=== PATIENT | female | born 1975 | race Caucasian/White ===

== ENCOUNTER 2019-06-22 12:12 | Emergency (ER) | payer BC, OTHER ==
[2019-06-22 12:17] VITALS: TEMP 98
[2019-06-22] MEDS ORDERED: ACET/COD 300 MG/30 MG STARTER PACK 6 TAB BTL PO STA (12:32)
[2019-06-22] MEDS ORDERED: LIDOCAINE 1% INJ 10MG/ML (20 ML MDV) SQ ONE (12:39)
--- NOTE | 2019-06-22 12:40 | ED ---
Wound/Laceration HPI - General Chief Complaint: Wound/Laceration Stated Complaint: elbow lac Time Seen by Provider: 06/22/19 12:21 Source: patient, RN notes reviewed, old records reviewed Mode of arrival: ambulatory Limitations: no limitations - History of Present Illness Initial Comments: Patient is a 44-year-old female who presents emergency department today after a fall onto her left elbow. Patient reports that she tripped over her dog and landed on her elbow. She complains of a laceration that will need stitches. Patient states that she is right-handed. She denies any other injuries related to the fall. - Related Data Previous Rx's Medication Instructions Recorded HYDROcodone/APAP 5-325MG [[place] 1 tab PO Q6HR PRN #20 tab 12/05/15 5-325] Ibuprofen [Motrin] 600 mg PO Q6HR PRN #20 tab 12/05/15 Allergies Allergy/AdvReac Type Severity Reaction Status Date / Time No Known Allergies Allergy Verified 06/22/19 12:18 Review of Systems ROS Statement: Those systems with pertinent positive or pertinent negative responses have been documented in the HPI. ROS Other: All systems not noted in ROS Statement are negative. Past Medical History Additional Past Medical History / Comment(s): convulsions History of Any Multi-Drug Resistant Organisms: None Reported Past Surgical History: Section, Cholecystectomy Past Psychological History: Anxiety Smoking Status: Current every day smoker Past Alcohol Use History: Occasional Past Drug Use History: None Reported General Exam - General Exam Comments Initial Comments: 44-year-old female. Limitations: no limitations General appearance: alert, in no apparent distress Head exam: Present: atraumatic, normocephalic, normal inspection Eye exam: Present: normal appearance, PERRL, EOMI. Absent: scleral icterus, conjunctival injection, periorbital swelling ENT exam: Present: normal exam, mucous membranes moist Neck exam: Present: normal inspection. Absent: tenderness, meningismus, lymphadenopathy Respiratory exam: Present: normal lung sounds bilaterally. Absent: respiratory distress, wheezes, rales, rhonchi, stridor Cardiovascular Exam: Present: regular rate GI/Abdominal exam: Present: soft, normal bowel sounds. Absent: distended, tenderness, guarding, rebound, rigid Extremities exam: Present: normal inspection, full ROM, normal capillary refill. Absent: tenderness, pedal edema, joint swelling, calf tenderness Left Upper Arm exam: Present: normal inspection, full ROM Elbow exam: Present: full ROM, swelling (over elbow, 3 cm laceration). Absent: normal inspection, tenderness Forearm Wrist exam: Present: normal inspection, full ROM Hand Wrist exam: Present: normal inspection, full ROM Neuro motor exam: Present: wrist extension intact, thumb opposition intact, thumb IP flexion intact, thumb adduction intact, fingers 2-5 abduction intact Vascular: Present: normal capillary refill Back exam: Present: normal inspection Neurological exam: Present: alert, oriented X3, CN II-XII intact Psychiatric exam: Present: normal affect, normal mood Skin exam: Present: warm, dry, intact, normal color. Absent: rash Course Vital Signs 06/22/19 06/22/19 12:14 13:34 Temperature 98.0 F Pulse Rate 95 78 Respiratory 18 16 Rate Blood Pressure 143/90 142/76 O2 Sat by Pulse 98 99 Oximetry Procedures - Laceration Laceration #1 Size (cm): 3 Description: linear Depth: simple, single layer Anesthetic Used: lidocaine 1% Anesthesia Technique: local infiltration Amount (mls): 6 Pre-repair: wound explored Type of Sutures: vicryl Size of Sutures: 5-0 Number of Sutures: 6 Technique: simple, interrupted Patient Tolerated Procedure: well, no complications Medical Decision Making - Medical Decision Making 44-year-old female who presents emergency department today for you after concern for left elbow pain laceration after a fall. She is contusion of the left elbow. She has 3 similar laceration. Laceration was closed with 6 sutures. Patient tolerated procedure well. I discussed the Patient is to monitor for worsening swelling. X-ray was read negative for any acute processes or vascular intact. Discussed icing the elbow and discussed monitoring for any signs of infection over the sutures. Patient is agreeable to treatment plan will comply. Return parameters were discussed. 06/23/19 07:22 06/23/19 07:22 - Radiology Data Radiology results: report reviewed Left elbow x-ray shows no acute osseous lesion. Disposition Clinical Impression: Elbow contusion, Elbow laceration Disposition: HOME SELF-CARE Condition: Good Instructions (If sedation given, give patient instructions): Care For Your Stitches (ED), Elbow Sprain (ED) Additional Instructions: Please return to the emergency room in 8-10 days to have sutures removed. Please leave wound covered for the first 24-48 hours and then leave open to air after that time. Please use clean soap and water to clean the suture area to prevent scabbing over the top of your sutures. Please watch for any signs of infection which may include but not limited to increased pain, swelling, redness, fever or chills. Please return to the emergency room if any signs of infection do occur. Please return to the emergency room for any other concerns or complications. Is patient prescribed a controlled substance at d/c from ED?: No Referrals: Maximilian Lopez MD [Primary Care Provider] - 1-2 days Time of Disposition: 13:28
--- NOTE | 2019-06-22 13:08 | XR ---
EXAMINATION TYPE: XR elbow complete LT , 3 VIEWS DATE OF EXAM ORDERED: 06/22/2019 HISTORY: pain/laceration. COMPARISON: None. FINDINGS: No fracture, dislocation or elbow joint effusion is seen IMPRESSION: NO ACUTE OSSEOUS LESION.
[2019-06-22 13:35] VITALS: BP 142/76; PULSE 78; RESP 16
== END 2019-06-22 13:33 | disposition home or self-care (01) ==
LOC: EC 12:12
DX: S51.012A Laceration without foreign body of left elbow, initial encounter (principal); F17.200 Nicotine dependence, unspecified, uncomplicated; W01.0XXA Fall on same level from slipping, tripping and stumbling without subsequent striking against object, initial encounter
CPT/HCPCS: 73080; 99283; 12002; J2001

== ENCOUNTER 2023-08-24 11:16 | Emergency (ER) | payer BC, OTHER ==
[2023-08-24 11:44] VITALS: RESP 18
--- NOTE | 2023-08-24 11:50 | ED ---
Back Pain HPI - General Chief Complaint: Back Pain/Injury Stated Complaint: R leg pain Time Seen by Provider: 08/24/23 11:33 Source: patient, RN notes reviewed Limitations: no limitations - History of Present Illness Initial Comments: This is a 48-year-old female with no significant past medical history who presents to the emergency department with complaint of lumbar back pain that started on Monday. States that the pain is most severe right lumbar region that radiates into her right mid posterior glute and has experience parasthesias of the left posterior thigh into the popliteal. She denies saddle anesthesias, loss of bladder or bowel continence or urinary or fecal retention. She denies dysuria, hematuria, hematochezia, flank pain. She states that she has had pain like this before about a month ago which she did not visit with a specialist and received treatment. States that she has been taking Tylenol and Motrin at home, last dose of motrin 800 mg was at 1000 today. - Related Data Previous Rx's Medication Instructions Recorded HYDROcodone/APAP 5-325MG [[place] 1 tab PO Q6HR PRN #20 tab 12/05/15 5-325] Ibuprofen [Motrin] 600 mg PO Q6HR PRN #20 tab 12/05/15 Cyclobenzaprine [Flexeril] 5 mg PO TID PRN #12 tablet 08/24/23 predniSONE 50 mg PO DAILY #5 tab 08/24/23 Allergies Allergy/AdvReac Type Severity Reaction Status Date / Time No Known Allergies Allergy Verified 08/24/23 11:29 Review of Systems ROS Statement: Those systems with pertinent positive or pertinent negative responses have been documented in the HPI. ROS Other: All systems not noted in ROS Statement are negative. Past Medical History Additional Past Medical History / Comment(s): convulsions History of Any Multi-Drug Resistant Organisms: None Reported Past Surgical History: Section, Cholecystectomy, Orthopedic Surgery Additional Past Surgical History / Comment(s): plate and screws to left collar bone, broken jaw, Past Psychological History: Anxiety Smoking Status: Current every day smoker Past Alcohol Use History: Occasional Past Drug Use History: Marijuana General Exam Limitations: no limitations General appearance: alert, in no apparent distress Head exam: Present: atraumatic, normocephalic, normal inspection Eye exam: Present: normal appearance, PERRL, EOMI. Absent: scleral icterus, conjunctival injection, periorbital swelling ENT exam: Present: normal exam, mucous membranes moist Neck exam: Present: normal inspection. Absent: tenderness, meningismus, lymphadenopathy Respiratory exam: Present: normal lung sounds bilaterally. Absent: respiratory distress, wheezes, rales, rhonchi, stridor Cardiovascular Exam: Present: regular rate, normal rhythm, normal heart sounds. Absent: systolic murmur, diastolic murmur, rubs, gallop, clicks GI/Abdominal exam: Present: soft, normal bowel sounds. Absent: distended, tenderness, guarding, rebound, rigid Extremities exam: Present: normal inspection, full ROM, normal capillary refill. Absent: tenderness, pedal edema, joint swelling, calf tenderness Back exam: Present: normal inspection, tenderness (lumbar region most notable over the left), paraspinal tenderness. Absent: full ROM Neurological exam: Present: alert, oriented X3, CN II-XII intact Psychiatric exam: Present: normal affect, normal mood Skin exam: Present: warm, dry, intact, normal color. Absent: rash Course Vital Signs 08/24/23 08/24/23 11:25 13:18 Temperature 97.7 F 98.1 F Pulse Rate 86 84 Respiratory 18 18 Rate Blood Pressure 162/108 159/94 O2 Sat by Pulse 99 99 Oximetry Medical Decision Making - Medical Decision Making Was pt. sent in by a medical professional or institution ([facility]EVE Cheney, REWINDER OPERATOR HELPER, urgent care, hospital, or retirement...) When possible be specific @ -No Did you speak to anyone other than the patient for history (EMS, parent, family, police, friend...)? What history was obtained from this source @ -No Did you review nursing and triage notes (agree or disagree)? Why? @ -I reviewed and agree with nursing and triage notes Were old charts reviewed (outside hosp., previous admission, EMS record, old EKG, old radiological studies, urgent care reports/EKG's, retirement records)? Report findings @ -No old charts were reviewed Differential Diagnosis (chest pain, altered mental status, abdominal pain women, abdominal pain men, vaginal bleeding, weakness, fever, dyspnea, syncope, headache, dizziness, GI bleed, back pain, seizure, CVA, palpatations, mental health, musculoskeletal)? @Differential Musculoskeletal Muscular strain, contusion, ligament sprain, fracture, arthritis, septic arthritis, bursitis, cellulitis, muscle spasm, nerve compression, DVT, arterial occlusion, herpes zoster, electrolyte abnormality, tumor.... This is not meant to be in all inclusive list EKG interpreted by me (3pts min.). @ -None X-rays interpreted by me (1pt min.). @ -Lumbar x-ray no acute fracture or dislocation seen on lumbar spine. CT interpreted by me (1pt min.). @ -None done U/S interpreted by me (1pt. min.). @ -None done What testing was considered but not performed or refused? (CT, X-rays, U/S, labs)? Why? @ -None What meds were considered but not given or refused? Why? @ -None Did you discuss the management of the patient with other professionals (professionals i.e. , PA, REWINDER OPERATOR HELPER, lab, RT, psych nurse, social science teacher, zipper cutter, teacher, correctional officer sergeant, counseling case manager)? Give summary @ -No Was smoking cessation discussed for >3mins.? @ -No Was critical care preformed (if so, how long)? @ -No Were there social determinants of health that impacted care today? How? (Homelessness, low income, unemployed, alcoholism, drug addiction, transportation, low edu. Level, literacy, decrease access to med. care, longterm, rehab)? @ -No Was there de-escalation of care discussed even if they declined (Discuss DNR or withdrawal of care, Hospice)? DNR status @ -No What co-morbidities impacted this encounter? (DM, HTN, Smoking, COPD, CAD, Cancer, CVA, ARF, Chemo, Hep., AIDS, mental health diagnosis, sleep apnea, morbid obesity)? @ -None Was patient admitted / discharged? Hospital course, mention meds given and route, prescriptions, significant lab abnormalities, going to OR and other pertinent info. @ -Discharge. 48-year-old female chief complaint of lumbar back pain. On musculoskeletal examination patient noted to have mild tenderness to palpation over the left lumbar region that radiates into the mid glued of the left. Patient is also complaining of radiation into her right posterior thigh. There are no noted paresthesias or decrease in muscle strength. X-ray unremarkable. Reevaluation of the patient was given most relaxers and that she feels somewhat better. Patient also given lidocaine patch for pain relief. Patient will be discharged home on short course of steroids in addition to muscle relaxers as needed. Recommend that patient follows up with primary care provider within the next few days for further evaluation. Patient is in agreement with this. Discussed with Undiagnosed new problem with uncertain prognosis? @ -No Drug Therapy requiring intensive monitoring for toxicity (Heparin, Nitro, Insulin, Cardizem)? @ -No Were any procedures done? @ -No Diagnosis/symptom? @ -lumbar back pain, strain Acute, or Chronic, or Acute on Chronic? @ acute Uncomplicated (without systemic symptoms) or Complicated (systemic symptoms)? @ -uncomplicated Side effects of treatment? @ -No Exacerbation, Progression, or Severe Exacerbation? @ -No Poses a threat to life or bodily function? How? (Chest pain, [place], AR, pneumonia, PE, COPD, DKA, ARF, appy, cholecystitis, CVA, Diverticulitis, Homicidal, Suicidal, threat to staff... and all critical care pts) @ -No Disposition Clinical Impression: Lumbar back pain, Sciatic leg pain Narrative: Please return to the Emergency Department if symptoms worsen or any other concerns. Complete full course of steroids as prescribed and take muscle relaxers as needed. Follow-up with your primary care provider within the next week for further evaluation. Disposition: HOME SELF-CARE Condition: Good Instructions (If sedation given, give patient instructions): Sciatica (ED), Lower Back Exercises (ED) Prescriptions: Cyclobenzaprine [Flexeril] 5 mg PO TID PRN #12 tablet PRN Reason: Muscle Spasm predniSONE 50 mg PO DAILY #5 tab Is patient prescribed a controlled substance at d/c from ED?: No Referrals: None,Stated [Primary Care Provider] - 1-2 days Time of Disposition: 13:12
[2023-08-24] MEDS: ORPHENADRINE 30 MG/ML 2 ML VIAL IM STA (12:08)
--- NOTE | 2023-08-24 12:39 | XR ---
EXAMINATION TYPE: XR lumbar spine 2 or 3V DATE OF EXAM: 08/24/2023 CLINICAL HISTORY: pain TECHNIQUE: Three views of the lumbar spine are submitted. COMPARISON: None. FINDINGS: There are 5 lumbar type vertebral bodies identified. The lumbar spine shows satisfactory alignment w ithout evidence of acute fracture or dislocation. Vertebral body heights are within normal limits. Disc spaces are within normal limits. The overlying soft tissue appears unremarkable. IMPRESSION: No acute fracture or dislocation is seen in the lumbar spine. ICD 10 NO FRACTURE, INITIAL EVALUATION
[2023-08-24] MEDS: LIDOCAINE 4% PATCH TOPICAL ONE (13:15)
[2023-08-24 13:57] VITALS: BP 159/94; PULSE 84; TEMP 98.1
== END 2023-08-24 13:20 | disposition home or self-care (01) ==
LOC: EC 11:16
DX: S39.012A Strain of muscle, fascia and tendon of lower back, initial encounter (principal); M54.32 Sciatica, left side; F17.200 Nicotine dependence, unspecified, uncomplicated; X58.XXXA Exposure to other specified factors, initial encounter
CPT/HCPCS: 99283; 96372; 72100; J2360